=== PATIENT | female | born 1955 | race Caucasian/White ===

== ENCOUNTER → 2017-03-01 | Outpatient (CLI) | payer OTHER ==
--- NOTE | 2017-03-01 16:59 | Diagnostic Imaging Report ---
Bilateral screening mammogram. The current study was also evaluated with a Computer Aided Detection (CAD) system. INDICATION: Screening. No current complaints stated on the questionnaire. COMPARISON: 02/23/2016. FINDINGS: The breasts are composed of scattered fibroglandular densities. Focal asymmetry in the outer aspect of the right breast has increased density compared to the previous studies favored to be an intramammary lymph node. There left breast demonstrates no change. IMPRESSION: Slight increased density in focal asymmetry along the outer aspect of the right breast may relate to intramammary lymph node. Focal compression view and ultrasound evaluation recommended. ACR BI-RADS Category 0: Incomplete. (Needs additional imaging evaluation). Result letter will be mailed to the patient. Note: At least 10% of breast cancer is not imaged by mammography. Dictated by: Dictated on workstation # [id number]
== END ==
LOC: RAD 09:10
PROVIDERS: ATTEND Midwife
DX: Z12.31 Encounter for screening mammogram for malignant neoplasm of breast (principal); R92.8 Other abnormal and inconclusive findings on diagnostic imaging of breast
CPT/HCPCS: 77067

== ENCOUNTER → 2017-03-19 | Outpatient (CLI) | payer OTHER ==
--- NOTE | 2017-03-19 13:52 | Diagnostic Imaging Report ---
EXAMINATION: Right breast ultrasound. INDICATION: Focal asymmetry along the outer aspect of the right breast. FINDINGS: There is a lobulated hypoechoic lesion in the 9 o'clock zone 6 cm from the nipple measuring 9 x 5 x 5 mm. There is no shadowing. No internal vascularity with color Doppler is seen. No other lesions are identified. IMPRESSION: There is a nonspecific 9 mm lobulated hypoechoic lesion at the 9 o'clock zone 6 cm from the nipple. This appears to match the mammographic abnormality. Although the exact etiology is uncertain, no aggressive features are seen and this is favored to be of benign etiology. A 6 month followup ultrasound and mammogram of the right breast would be recommended to ensure stability. ACR BI-RADS Category 3: Probably benign findings. Dictated by: Dictated on workstation # [id number]
--- NOTE | 2017-03-19 14:37 | Diagnostic Imaging Report ---
EXAMINATION: Right diagnostic breast mammogram with a Computer Aided Detection (CAD) system. INDICATION: Focal asymmetry in the lateral aspect of the right breast. FINDINGS: Focal compression views demonstrate persistent oval focal asymmetry in the lateral aspect of the right breast measuring about 7 mm in size. It appears to have circumscribed lobulated margins. The etiology is favored to be benign. IMPRESSION: Confirmed circumscribed 7 mm lateral right breast nodule. Ultrasound evaluation is pending. Dictated by: Dictated on workstation # [id number]
== END ==
LOC: RAD 07:43
PROVIDERS: ATTEND Midwife
DX: R92.8 Other abnormal and inconclusive findings on diagnostic imaging of breast (principal)

== ENCOUNTER → 2017-09-12 | Outpatient (CLI) | payer OTHER ==
--- NOTE | 2017-09-12 09:49 | Diagnostic Imaging Report ---
Right breast diagnostic mammogram. CAD is utilized. The current study was also evaluated with a Computer Aided Detection (CAD) system. COMPARISON: 03/19/2017. INDICATION: Focal asymmetry in the outer aspect of the right breast. FINDINGS: The previously seen focal asymmetry in the outer aspect of the right breast is less prominent on the current exam in favor of a benign etiology with no adverse development and no new mass, architecture distortion or suspicious calcification. IMPRESSION: Focal asymmetry in the outer aspect of the right breast is less prominent compared to the prior exam in favor of benign etiology. Ultrasound evaluation is pending. BI-RADS 0. Dictated by: Dictated on workstation # [id number]
--- NOTE | 2017-09-12 11:13 | Diagnostic Imaging Report ---
Right breast ultrasound. INDICATION: Asymmetry in the outer aspect of the left breast and nodule seen on the previous exam of 03/19/17. FINDINGS: The previously seen lesion at the 9 o'clock, zone in the right breast is not visualized at this time. IMPRESSION: Negative study. On mammography also the lesion is much smaller suggestive of transient benign process. Annual screening mammogram is recommended. BI-RADS 1. Dictated by: Dictated on workstation # [id number]
== END ==
LOC: RAD 09:17
PROVIDERS: ATTEND Obstetrics & Gynecology
DX: N64.89 Other specified disorders of breast (principal)

== ENCOUNTER → 2018-02-27 | Outpatient (CLI) | payer OTHER ==
[2018-02-27 07:09] LABS: BASOPHILS % (AUTO) 0 % (0-10); EOSINOPHILS # (AUTO) 0.4 10^3/uL (0.0-0.3); EOSINOPHILS % (AUTO) 7 % (0-10); HEMATOCRIT 41 % (35-52); HEMOGLOBIN 13.9 G/DL (11.5-16.0); LYMPHOCYTES # (AUTO) 1.7 X 10^3 (1.0-4.0); LYMPHOCYTES % (AUTO) 34 % (12-44); MEAN CORPUSCULAR HEMOGLOBIN 29 PG (25-34); MEAN CORPUSCULAR HGB CONC 34 G/DL (32-36); MEAN CORPUSCULAR VOLUME 86 FL (80-99); MONOCYTES # (AUTO) 0.5 X 10^3 (0.0-1.0); MONOCYTES % (AUTO) 9 % (0-12); NEUTROPHILS # (AUTO) 2.5 X 10^3 (1.8-7.8); NEUTROPHILS % (AUTO) 49 % (42-75); PLATELET COUNT 293 10^3/uL (130-400); RED BLOOD COUNT 4.75 10^6/uL (4.35-5.85); RED CELL DISTRIBUTION WIDTH 13.7 % (10.0-14.5); WHITE BLOOD COUNT 5.1 10^3/uL (4.3-11.0)
--- NOTE | 2018-02-27 22:49 | Diagnostic Imaging Report ---
INDICATION: Screening. At this time there are no current complaints. EXAMINATION: Bilateral digital screening mammogram with CAD. 3D tomographic images were obtained and reviewed. The current study was also evaluated with a Computer Aided Detection (CAD) system. COMPARISON: This study was compared to the prior exams of 09/12/2017, 03/01/2017 and 02/23/2016. FINDINGS: There is a mild amount of fibroglandular tissue present in both breasts, similar to the prior exam. No primary or secondary sign of malignancy is noted. IMPRESSION: There is no radiographic evidence for malignancy. ACR BI-RADS Category 1: Negative. Result letter will be mailed to the patient. Note: At least 10% of breast cancer is not imaged by mammography. Dictated by: Dictated on workstation # [id number]
== END ==
LOC: RAD 06:50
PROVIDERS: ATTEND Midwife
DX: Z12.31 Encounter for screening mammogram for malignant neoplasm of breast (principal); E11.69 Type 2 diabetes mellitus with other specified complication; N95.2 Postmenopausal atrophic vaginitis
CPT/HCPCS: 36415; 77067; 80061; 82306; 82607; 83036; 84443; 85025